=== PATIENT | female | born 1950 | race Caucasian/White ===

== ENCOUNTER → 2016-09-07 | Outpatient (CLI) | payer MEDICARE, BC | END | disposition home or self-care (01) | LOC: PCVCCLINIC 13:40 | PROVIDERS: ATTEND Internal Medicine Cardiovascular Disease | DX: I42.9 Cardiomyopathy, unspecified (principal); E78.00 Pure hypercholesterolemia, unspecified; E78.1 Pure hyperglyceridemia; I07.1 Rheumatic tricuspid insufficiency; M79.7 Fibromyalgia; I27.2 Other secondary pulmonary hypertension; J44.9 Chronic obstructive pulmonary disease, unspecified; Z85.72 Personal history of non-Hodgkin lymphomas; Z90.49 Acquired absence of other specified parts of digestive tract; Z79.82 Long term (current) use of aspirin; Z79.899 Other long term (current) drug therapy | CPT/HCPCS: 80061; 93005; G0463 ==

== ENCOUNTER → 2016-12-03 | Outpatient (CLI) | payer MEDICARE, BC ==
--- NOTE | 2016-12-03 16:04 | PCVCIMAG ---
APPROVED REPORT Exam: Stress Echocardiogram Indication: Dyspnea, tricuspid regurgitation, pulmonary HTN Patient Location: Echo lab Stress Nurse: Nava Waite RN Status: routine Ht: 5 ft 10 in HR: 80 bpm BP: 128/80 mmHg Rhythm: NSR Stress Test Details Stress Test: Exercise stress testing was performed using a Clay protocol. HR Resting HR: 80 bpmMax Heart Rate (APMHR): 152 bpm Max HR Achieved: 131 bpmTarget HR (85% APMHR): 129 bpm % of APMHR: 86 Recovery HR: 88 bpm HR response to stress: Normal HR response to stress BP Resting BP: 128/80 mmHg Max BP: 140/68 mmHg Recovery BP: 118/64 mmHg ECG Resting ECG: Sinus Rhythm Stress ECG: Sinus Rhythm ST Change: Normal Arrhythmia: None Recovery ECG: Sinus Rhythm Recovery ST Change: Normal Recovery Arrhythmia: None Clinical Reason for Termination: Maximal effort, leg fatigue, Dyspnea Stress Symptoms: Dyspnea, Leg Fatigue Exercise duration: 3 min 0 sec Highest Stage Achieved: Stage 1: 1.7 mph at 10% grade. Exercise capacity: 4.6 METs Overall Exercise Capacity for Age: Poor Pre-Stress Echo The resting Echocardiogram showed normal left ventricular contractility with an estimated Ejection Fraction of about >55%. Normal wall motion in all segments on baseline images. Post-Stress Echo The stress Echocardiogram showed normal left ventricular contractility with an estimated Ejection Fraction of about 65%. Normal augmentation of wall motion in all segments on post stress images. Clinical No clinical or ECG evidence for ischemia. Conclusion Clinical Response: Non-ischemic Stress ECG Response: Non-ischemic Stress Echo Images: Non-ischemic The left ventricle is normal in size and wall thickness in both the rest and stress images. <Conclusion> The left ventricle is normal in size and wall thickness in both the rest and stress images.
== END | disposition home or self-care (01) ==
LOC: PCVCIMAG 14:26
PROVIDERS: ATTEND Internal Medicine Cardiovascular Disease
DX: I07.1 Rheumatic tricuspid insufficiency (principal); I42.9 Cardiomyopathy, unspecified; E78.00 Pure hypercholesterolemia, unspecified; I27.0 Primary pulmonary hypertension
CPT/HCPCS: 93325; 93351

== ENCOUNTER → 2017-06-14 | Outpatient (CLI) | payer MEDICARE, BC | END | disposition home or self-care (01) | LOC: PCVCCLINIC 14:30 | DX: I42.9 Cardiomyopathy, unspecified (principal); I10 Essential (primary) hypertension; E78.00 Pure hypercholesterolemia, unspecified; I36.1 Nonrheumatic tricuspid (valve) insufficiency; G47.33 Obstructive sleep apnea (adult) (pediatric); J44.9 Chronic obstructive pulmonary disease, unspecified; Z79.82 Long term (current) use of aspirin; Z79.899 Other long term (current) drug therapy | CPT/HCPCS: 93005; G0463 ==

== ENCOUNTER → 2018-04-15 | Outpatient (CLI) | payer MEDICARE, BC ==
--- NOTE | 2018-04-15 13:57 | PCVCIMAG ---
APPROVED REPORT Study performed: 04/15/2018 12:11:19 EXAM: Comprehensive 2D, Doppler, and color-flow Echocardiogram Patient Location: Echo lab Status: routine BSA: 2.10 HR: 78 bpmBP: 132/68 mmHg Rhythm: NSR Other Information Study Quality: Adequate Risk Factors: Cardiac Risk Factors: HTN Indications COPD Cardiomyopathy 2D Dimensions IVSd: 11.07 (7-11mm) LVDd: 39.82 mm PWd: 10.40 (7-11mm)Ascending Ao: 34.37 (22-36mm) LVDs: 29.20 (25-40mm) Left Atrium: 34.32 (27-40mm) Aortic Root: 35.28 mm LV Single Plane 4CH: 53.32 % LV Single Plane 2CH: 63.54 % Biplane EF: 58.1 % Volumes Left Atrial Volume (Systole) Single Plane 4CH: 34.52 mLSingle Plane 2CH: 56.22 mL LA ESV Index: 23.00 mL/m2 Aortic Valve AoV Peak Sherwin.: 1.18 m/s AO Peak Gr.: 5.58 mmHgLVOT Max P.51 mmHg LVOT Max V: 0.94 m/s Mitral Valve E/A Ratio: 0.7 MV Decel. Time: 232.38 ms MV E Max Sherwin.: 0.43 m/s MV A Sherwin.: 0.60 m/s MV PHT: 67.39 ms IVRT: 114.19 ms Pulmonary Valve PV Peak Sherwin.: 0.81 m/sPV Peak Gr.: 2.61 mmHg Pulmonary Vein P Vein S: 0.24 m/sP Vein A: 0.32 m/s P Vein D: 0.32 m/sP Vein A Dur.: 166.1 msec P Vein S/D Ratio: 0.75 Tricuspid Valve TR Peak Sherwin.: 3.11 m/s TR Peak Gr.: 38.62 mmHg TV Vmax: 0.57 m/s Left Ventricle The left ventricle is normal size. There is normal LV segmental wall motion. There is normal left ventricular wall thickness. Left ventricular systolic function is within the lower limits of normal. LVEF is 50%. Grade I - abnormal relaxation pattern. Right Ventricle Right ventricle is mild to moderately dilated. The right ventricular systolic function is normal. Atria The left atrium size is normal. Right atrium is mild-moderately dilated. Aortic Valve The aortic valve is normal in structure. Mild aortic regurgitation. There is no aortic valvular stenosis. Mitral Valve The mitral valve is normal in structure. Trace mitral regurgitation. No evidence of mitral valve stenosis. Tricuspid Valve The tricuspid valve is normal in structure. Moderate to severe tricuspid regurgitation with PAP of 46 mmHg. Pulmonic Valve The pulmonary valve is normal in structure. There is no pulmonic valvular regurgitation. Great Vessels The aortic root is normal in size. IVC is normal in size and collapses >50% with inspiration. Pericardium There is no pericardial effusion. There is no pleural effusion. <Conclusion> The left ventricle is normal size. LVEF is 50%. Grade I - abnormal relaxation pattern. Right ventricle is mild to moderately dilated. Right atrium is mild-moderately dilated. Mild aortic regurgitation. Trace mitral regurgitation. Moderate to severe tricuspid regurgitation with PAP of 46 mmHg. The aortic root is normal in size. There is no pericardial effusion.
== END | disposition home or self-care (01) ==
LOC: PCVCIMAG 12:25
PROVIDERS: ATTEND Internal Medicine Cardiovascular Disease
DX: I08.2 Rheumatic disorders of both aortic and tricuspid valves (principal); I42.9 Cardiomyopathy, unspecified; J44.9 Chronic obstructive pulmonary disease, unspecified; C85.90 Non-Hodgkin lymphoma, unspecified, unspecified site; E78.00 Pure hypercholesterolemia, unspecified; I10 Essential (primary) hypertension; I27.20 Pulmonary hypertension, unspecified; R00.2 Palpitations; Z79.82 Long term (current) use of aspirin
CPT/HCPCS: 36415; 80061; 93005; 93306; G0463

== ENCOUNTER → 2018-05-15 | Outpatient (CLI) | payer MEDICARE, BC | END | disposition home or self-care (01) | LOC: PCVCCLINIC 14:00 | PROVIDERS: ATTEND Internal Medicine Cardiovascular Disease | DX: I48.91 Unspecified atrial fibrillation (principal); I42.9 Cardiomyopathy, unspecified; J44.9 Chronic obstructive pulmonary disease, unspecified; G47.33 Obstructive sleep apnea (adult) (pediatric); I10 Essential (primary) hypertension; I36.1 Nonrheumatic tricuspid (valve) insufficiency; E78.00 Pure hypercholesterolemia, unspecified; Z91.048 Other nonmedicinal substance allergy status | CPT/HCPCS: 93005; G0463 ==

== ENCOUNTER → 2018-08-19 | Outpatient (CLI) | payer MEDICARE, BC | END | disposition home or self-care (01) | LOC: PCVCCLINIC 15:00 | PROVIDERS: ATTEND Internal Medicine Cardiovascular Disease | DX: I48.91 Unspecified atrial fibrillation (principal); G47.33 Obstructive sleep apnea (adult) (pediatric); J44.9 Chronic obstructive pulmonary disease, unspecified; I10 Essential (primary) hypertension; E78.1 Pure hyperglyceridemia; I42.9 Cardiomyopathy, unspecified; E78.00 Pure hypercholesterolemia, unspecified; Z79.899 Other long term (current) drug therapy | CPT/HCPCS: 36415; 80061; 93005; G0463 ==

== ENCOUNTER → 2018-11-25 | Outpatient (CLI) | payer MEDICARE, BC ==
[~2018-11-25] MED LIST: REGADENOSON 0.4 MG/5 ML DISP.SYRIN. IV ONE
--- NOTE | 2018-11-25 16:53 | PCVCIMAG ---
APPROVED REPORT Imaging Protocol: Rest Tc-99m/Stress Tc-99m 1 day Study performed: 11/25/2018 14:24:31 Indication: Cardiomyopathy, Afib Patient Location: Out-Patient Stress Nurse: Nava Waite RN, SMILEY Vidal Tech:Bruce Stephens NMADRIENB Ht: 5 ft 10 in Wt: 192 lbs BSA: 2.05 m2 HR: 60 bpm BP: 121/63 mmHg BMI: 27.5 Rhythm: Aflutter, Nonspecific ST and T abnormality Medical History Medical History: Age, Hyperlipidemia, HTN, DM, Afib, COPD Medications: Lasix, Lavastatin, Gabapentin, Xarelto Allergies: Tape Pretest Chest Pain Characteristics: No chest pain Exercise History: Indeterminate Resting Data Rest SPECT myocardial perfusion imaging was performed in supine position 60 minutes following the intravenous injection of 11.2 mCi of Tc-99m Sestamibi. Time of rest injection: 1330 Date: 11/25/2018 Administration Route: IV Administration Site: Right Wrist Pharmacologic Stress Pharmacologic stress test was performed by injecting Regadenoson 0.4 mg IV push over 10-15 seconds immediately followed by the intravenous injection of 34.1 mCi of Tc-99m Sestamibi. Time of stress injection: 1455 Date: 11/25/2018 Administration Route: IV Administration Site: Right Wrist Gated Stress SPECT was performed 60 minutes after stress injection. The images were gated to evaluate regional wall motion and calculate left ventricular ejection fraction. Stress Test Details Stress Test: Pharmacologic stress testing performed using 0.4 mg of regadenoson per 5 mL given IV over 10 seconds. Reason for pharmacologic stress test: Torn ACL, Back problems. HRMax Heart Rate (APMHR): 150 bpm Resting HR: 60 bpmTarget HR (85% APMHR): 127 bpm Max HR Achieved: 78 bpm % of APMHR: 52 Recovery HR: 73 bpm BP Resting BP: 121/63 mmHg Max BP: 113/61 mmHg Recovery BP: 111/60 mmHg ECG Resting ECG: Atrial Flutter, nonspecific ST-T abnormalities Stress ECG: Atrial Flutter, nonspecific ST-T abnormalities Arrhythmia: PVC's Recovery ECG: Atrial Flutter, nonspecific ST-T abnormalities Clinical Reason for Termination: Completed protocol Stress Symptoms: Abdominal discomfort, Lightheaded Exercise duration: min 55 sec Symptoms resolved with caffeine. Stress ECG Conclusion ECG: Non-ischemic Study Quality Study: Good Study Data Post stress, the left ventricular ejection was 70%.. SSS: 5 SRS: 3 SDS: 2 TID = 0.93. Perfusion No evidence of stress induced ischemia or prior myocardial infarction. Wall Motion Normal left ventricular size and function with no regional wall motion abnormalities. Nuclear Conclusion No evidence of stress induced ischemia or prior myocardial infarction. Normal left ventricular size and function with no regional wall motion abnormalities. Post stress, the left ventricular ejection was 70%. No prior study available for comparison. Interpreted by: Luan Carmona MD Electronically Approved: 11/25/2018 16:48:50 <Conclusion> ECG: Non-ischemic
== END | disposition home or self-care (01) ==
LOC: PCVCIMAG 13:07
PROVIDERS: ATTEND Internal Medicine Cardiovascular Disease
DX: I42.9 Cardiomyopathy, unspecified (principal); I51.7 Cardiomegaly; I10 Essential (primary) hypertension; I48.91 Unspecified atrial fibrillation; Z91.048 Other nonmedicinal substance allergy status
CPT/HCPCS: 78452; 93017; A9500; J2785